=== PATIENT | female | born 1985 | race Caucasian/White ===

== ENCOUNTER 2017-12-05 11:56 | Emergency (ER) | payer OTHER ==
[~2017-12-05] VITALS: Ht 165.1 cm; Wt 72.5 kg
[2017-12-05 11:59] VITALS: TEMP 36.7; Ht 165.1 cm; Wt 72.5 kg
[2017-12-05] MEDS ORDERED: SODIUM CHLORIDE 0.9% 1000ML 1,000 ML IV STA (12:21)
[2017-12-05] MEDS ORDERED: ONDANSETRON INJ 2 MG/ML 2 ML VIAL IV STA (12:21)
--- NOTE | 2017-12-05 12:26 | EMERGENCY ROOM VISIT NOTE ---
History Report prepared by Lorenzo: Eduarda Faye Under the Supervision of: Dr. Giuliano Faith D.O. First contact with patient: 12:16 Chief Complaint: ABDOMINAL PAIN Stated Complaint: CHEST PAIN Nursing Triage Summary: Pt reports epigastric pain with sob for a couple hours. "I had diarrhea for 24 hrs and my son is puking today. I definitely had the stomach bug. It's gone and now I have this." History of Present Illness The patient is a 32 year old female who presents to the Emergency Room with complaints of waxing and waning central abdominal discomfort beginning 3 hours ago. The patient believes her symptoms are "acid related". She reports taking heartburn medication with minimal relief. She states she feels short of breath because her pain is so severe. She reports her pain does not move or radiate anywhere. She denies any blood in urine or stool, vomiting, or vaginal bleeding. The patient's last menstrual period was November 13. She reports having diarrhea for the past 24 hours. The patient's son is also sick with vomiting symptoms. The patient has no active medical problems or history of surgeries. Source of History: patient Onset: 3 hours ago Position: chest, abdomen Quality: other (discomfort) Timing: waxes/wanes Associated Symptoms: + chest pain, + SOB, + abdominal pain, + diarrhea, No vomiting, No urinary symptoms Review of Systems See HPI for pertinent positives & negatives. A total of 10 systems reviewed and were otherwise negative. Past Medical & Surgical Medical Problems: (1) No Known Active Medical Problems Family History Patient reports no known family medical history. Social History Marital Status: in relationship Housing Status: lives with family Occupation Status: employed Current/Historical Medications Scheduled Omeprazole (Prilosec), 40 MG PO DAILY Ondasetron Odt (Zofran Odt), 4 MG SL Q6H Scheduled PRN Oxycodone Immediate Rel Tab (Roxicodone Ir), 1-2 TAB PO Q4H PRN for Severe Pain Allergies Coded Allergies: Penicillins (Verified Allergy, Mild, HIVES, 12/05/17) Amoxicillin (Unverified Allergy, Unknown, ., 12/05/17) Physical Exam Vital Signs Date Time Temp Pulse Resp B/P (MAP) Pulse Ox O2 Delivery O2 Flow Rate FiO2 12/05/17 17:13 75 16 120/79 97 12/05/17 15:51 101 18 139/84 98 Room Air 12/05/17 15:01 77 18 137/77 98 Room Air 12/05/17 11:59 36.7 92 16 135/91 98 Room Air Physical Exam GENERAL: Patient is awake, alert, and in no acute distress. Patient is resting comfortably and showing no signs of anxiety EYES: The conjunctivae are clear. The pupils are round and reactive. EARS, NOSE, MOUTH AND THROAT: The nose is without any evidence of any deformity. Mucous membranes are moist tongue is midline NECK: The neck is nontender and supple. RESPIRATORY: Normal respiratory effort is noted there is no evidence of wheezing rhonchi or rales CARDIOVASCULAR: Regular rate and rhythm noted there no murmurs rubs or gallops normal S1 normal S2 GASTROINTESTINAL: The abdomen is soft, nondistended. Epigastric and RUQ tenderness to palpation, no rigidity Bowel sounds are present in all quadrants. BACK: No midline tenderness or or step-off noted range of motion in flexion extension as well as rotation no signs of muscle spasm noted MUSCULOSKELETAL/EXTREMITIES: There is no evidence of gross deformity full range of motion is noted in the hips and shoulders SKIN: There is no obvious evidence of any rash. There are no petechiae, pallor or cyanosis noted. NEUROLOGIC: Patient is awake alert and oriented x3 strength is symmetric patellar reflexes are 2+ bilaterally Medical Decision & Procedures ER Provider Diagnostic Interpretation: Radiology results as stated below per my review and radiologist interpretation: ABDOMEN 2VIEW W/PA CHEST RTN FINDINGS: The erect chest reveals no free intraperitoneal air. There is no focal pulmonary consolidation. Erect and supine views the abdomen reveal no abnormally dilated loops of large or small bowel. There are multiple colonic air-fluid levels. There is scattered nonspecific granular calcifications overlying the abdomen. It is not possible to determine whether these represent enteric contents or peritoneal calcifications. CT scanning could be obtained in follow-up as deemed clinically indicated. IMPRESSION: 1. No evidence of bowel obstruction. No evidence of free air 2. Scattered granular abdominal calcifications. It is not possible to determine whether these represent enteric contents or peritoneal calcifications. CT scanning could be obtained in follow-up as deemed clinically indicated. Electronically signed by: Ho Bridges M.D. ULTRASOUND RIGHT UPPER QUADRANT ABDOMEN FINDINGS: Liver: The liver is normal in size and echotexture. There is no intrahepatic biliary ductal dilatation. The main portal vein is patent. Gallbladder: The gallbladder is normal in appearance. No gallstones are identified. There is no gallbladder wall thickening or pericholecystic fluid. A sonographic Walker's sign is reportedly absent. The common bile duct measures up to 0.4 cm in diameter. Pancreas: Visualized portions of the pancreatic head and body are normal in appearance. The splenic vein is patent. Right kidney: Survey images of the right kidney demonstrate normal size and echotexture. There is no hydronephrosis. Ascites: None. IMPRESSION: No acute sonographic abnormality is identified in the right upper quadrant. No gallstones are seen. Electronically signed by: Danis Franco M.D. ABD/PELVIS IV CONTRAST ONLY FINDINGS: Wire Tester topogram: Unremarkable. Lung bases: Lungs and pleural spaces clear. Normal heart size. No pericardial or pleural effusion. Liver: Normal morphology. No liver lesion. Patent hepatic vasculature. Biliary: No intrahepatic or extrahepatic biliary ductal dilatation. Normal gallbladder. Pancreas: Normal. Spleen: Normal. Adrenal glands: Normal. Kidneys and ureters: Normal. No hydronephrosis. Bladder: Mild circumferential bladder wall thickening likely due to underdistention. Pelvic organs: Retroverted uterus. Ovarian follicles noted more prominently on the right. Normal ovaries. Bowel: Normal appendix. No bowel obstruction. Peritoneal cavity: Trace free fluid in the pelvis. Lymph nodes: No enlarged lymph nodes in the abdomen or pelvis. Vasculature: Aorta and IVC patent and normal in caliber. Prominence of the bilateral gonadal veins and prominent uterine vessels in the pelvis. Abdominal wall: Small fat-containing umbilical hernia. Musculoskeletal: Normal. IMPRESSION: 1. No acute intra-abdominal pathology. Specifically, no abnormality in the epigastrium. 2. Prominence of the bilateral gonadal veins and prominent uterine vessels could suggest pelvic congestion physiology in the appropriate clinical setting. 3. Mild circumferential bladder wall thickening likely due to underdistention. Correlate with urinalysis to exclude cystitis. 4. Free fluid in the pelvis likely physiologic. Electronically signed by: Samuel Elkins M.D. Laboratory Results 12/05/17 12:45 Red Blood Count 4.38, Mean Corpuscular Volume 87.4, Mean Corpuscular Hemoglobin 29.9, Mean Corpuscular Hemoglobin Concent 34.2, Mean Platelet Volume 10.6, Neutrophils (%) (Auto) 68.7, Lymphocytes (%) (Auto) 21.7, Monocytes (%) (Auto) 8.7, Eosinophils (%) (Auto) 0.6, Basophils (%) (Auto) 0.3, Neutrophils # (Auto) 2.21, Lymphocytes # (Auto) 0.70, Monocytes # (Auto) 0.28, Eosinophils # (Auto) 0.02, Basophils # (Auto) 0.01 12/05/17 12:45 Test 12/05/17 12:45 12/05/17 14:50 White Blood Count 3.22 K/uL (4.8-10.8) Red Blood Count 4.38 M/uL (4.2-5.4) Hemoglobin 13.1 g/dL (12.0-16.0) Hematocrit 38.3 % (37-47) Mean Corpuscular Volume 87.4 fL (80-100) Mean Corpuscular Hemoglobin 29.9 pg (25-34) Mean Corpuscular Hemoglobin Concent 34.2 g/dl (32-36) Platelet Count 172 K/uL (130-400) Mean Platelet Volume 10.6 fL (7.4-10.4) Neutrophils (%) (Auto) 68.7 % Lymphocytes (%) (Auto) 21.7 % Monocytes (%) (Auto) 8.7 % Eosinophils (%) (Auto) 0.6 % Basophils (%) (Auto) 0.3 % Neutrophils # (Auto) 2.21 K/uL (1.4-6.5) Lymphocytes # (Auto) 0.70 K/uL (1.2-3.4) Monocytes # (Auto) 0.28 K/uL (0.11-0.59) Eosinophils # (Auto) 0.02 K/uL (0-0.5) Basophils # (Auto) 0.01 K/uL (0-0.2) RDW Standard Deviation 39.9 fL (36.4-46.3) RDW Coefficient of Variation 12.4 % (11.5-14.5) Immature Granulocyte % (Auto) 0.0 % Immature Granulocyte # (Auto) 0.00 K/uL (0.00-0.02) Anion Gap 9.0 mmol/L (3-11) Est Creatinine Clear Calc Drug Dose 121.7 ml/min Estimated GFR () 134.3 Estimated GFR (Non- 115.8 BUN/Creatinine Ratio 16.3 (10-20) Calcium Level 8.5 mg/dl (8.5-10.1) Total Bilirubin 0.5 mg/dl (0.2-1) Direct Bilirubin 0.1 mg/dl (0-0.2) Aspartate Amino Transf (AST/SGOT) 16 U/L (15-37) Alanine Aminotransferase (ALT/SGPT) 21 U/L (12-78) Alkaline Phosphatase 43 U/L (45-117) Troponin I < 0.015 ng/ml (0-0.045) Total Protein 7.1 gm/dl (6.4-8.2) Albumin 3.7 gm/dl (3.4-5.0) Lipase 109 U/L (73-393) Human Chorionic Gonadotropin, Qual NEG (NEG) Urine Color YELLOW Urine Appearance CLEAR (CLEAR) Urine pH 6.0 (4.5-7.5) Urine Specific [place] 1.010 (1.000-1.030) Urine Protein NEG (NEG) Urine Glucose (UA) NEG (NEG) Urine Ketones 2+ (NEG) Urine Occult Blood NEG (NEG) Urine Nitrite NEG (NEG) Urine Bilirubin NEG (NEG) Urine Urobilinogen NEG (NEG) Urine Leukocyte Esterase NEG (NEG) Laboratory results per my review. Medications Administered Medications (Trade) Dose Ordered Sig/Brooke Route Start Time Stop Time Status Last Admin Dose Admin Sodium Chloride 1,000 ml @ 999 mls/hr Q1H1M STAT IV 12/05/17 12:21 12/05/17 13:21 DC 12/05/17 12:55 999 MLS/HR Ondansetron HCl (Zofran Inj) 4 mg NOW STAT IV 12/05/17 12:21 12/05/17 12:22 DC 12/05/17 13:11 4 MG Pantoprazole Sodium (Protonix Tab) 40 mg NOW STAT PO 12/05/17 15:57 12/05/17 15:59 DC 12/05/17 16:04 40 MG Al Hydroxide/Mg Hydroxide (Maalox Susp) 30 ml STK-MED ONCE .ROUTE 12/05/17 16:02 12/05/17 16:03 DC 12/05/17 16:05 30 ML Lidocaine HCl (Viscous Lidocaine 2% Soln) 20 ml STK-MED ONCE .ROUTE 12/05/17 16:02 12/05/17 16:03 DC 12/05/17 16:05 20 ML ECG Indication: abdominal pain Rate (beats per minute): 72 Rhythm: normal sinus Findings: no acute ischemic change, no ectopy, other (no acute ST segments ) Comparison ECG Date: no prior available Change: EKG interpreted by me. ED Course 1218: The patient was evaluated in room B5. A complete history and physical examination were performed. 1221: Ordered Zofran Inj 4 mg IV, NSS 1,000 ml @ 999 mls/hr IV. 1300: Ordered Morphine Sulfate 4 mg IV. 1542: I updated the patient on her test results. 1557: Ordered Protonix Tab 40 mg PO, GI Cocktail 24 ml PO. 1602: Ordered Lidocaine HCL 20 ml .ROUTE, Maalox Susp 30 ml .ROUTE. 1654: Upon reevaluation, the patient is resting comfortably. I discussed the results and treatment plan with her. She verbalized agreement of the treatment plan. The patient was discharged home. Medical Decision Differential diagnosis: Etiologies such as appendicitis, diverticulitis, PUD, biliary pathology, UTI, pancreatitis, obstruction, mesenteric ischemia, aortic pathology, infections, inflammatory bowel disease, renal colic, as well as others were entertained. HEART score 1. Nursing notes reviewed. The patient is a 32-year-old female who presented to the emergency department for an evaluation of epigastric discomfort. The patient has a child at home and currently has a nonspecific GI illness. The patient's been expressing nausea and reproducible epigastric discomfort. I discussed patient's laboratory and radiographic studies with her. No acute abnormality was noted on CT the abdomen and pelvis. The patient was treated with GI cocktail IV pain medicine and IV antiemetics. On subsequent reevaluation she was minimally improved. At this time I feel it is likely a GI source for her discomfort. She was started on medications for this and encouraged to call her primary care physician to schedule a follow-up appointment. Otherwise also encouraged her to avoid any strenuous activity and return to the emergency department immediately if symptoms change worsen or the need arises. Medication Reconcilliation Current Medication List: was personally reviewed by me Blood Pressure Screening Patient's blood pressure: Elevated blood pressure Blood pressure disposition: Elevated BP felt to be situational Impression Primary Impression: Epigastric pain Additional Impression: Gastritis Scribe Attestation The scribe's documentation has been prepared under my direction and personally reviewed by me in its entirety. I confirm that the note above accurately reflects all work, treatment, procedures, and medical decision making performed by me. Departure Information Dispostion Home / Self-Care Prescriptions Omeprazole (PRILOSEC) 40 Mg Cap 40 MG PO DAILY, #30 CAP Prov: Giuliano Faith, DO 12/05/17 Oxycodone Immediate Rel Tab (ROXICODONE IR) 5 Mg Tab 1-2 TAB PO Q4H Y for Severe Pain, #20 TAB Prov: Giuliano Faith, DO 12/05/17 Ondasetron Odt (ZOFRAN ODT) 4 Mg Tab 4 MG SL Q6H for Nausea, #15 TAB Prov: Giuliano Faith, DO 12/05/17 Referrals No Doctor, Assigned (PCP) Forms Call Back Authorization, HOME CARE DOCUMENTATION FORM, IMPORTANT VISIT INFORMATION Patient Instructions ED Epigastric Pain [facility]iff[facility] Additional Instructions Continue all medications as prescribed. Drink plenty clear liquids. Continue using Maalox or Mylanta as directed for symptomatically relief. Avoid NSAIDs such as ibuprofen or Aleve. Call your family to schedule a follow-up appointment. Return to the emergency department immediately if symptoms change worsen or the need arises. Problem Qualifiers Additional Impression: Gastritis Gastritis type: unspecified gastritis Chronicity: acute Gastritis bleeding : presence of bleeding unspecified Qualified Codes: K29.00 - Acute gastritis without bleeding
[2017-12-05] MEDS ORDERED: MoRPHine SULFATE 4 MG/ML 1 ML CARP\\VIAL IV PRN (13:00)
[2017-12-05 13:22] LABS: BASO % 0.3 %; BASO ABS # 0.01 K/uL (0-0.2); EOS % 0.6 %; EOS ABS # 0.02 K/uL (0-0.5); HEMATOCRIT 38.3 % (37-47); HEMOGLOBIN 13.1 g/dL (12.0-16.0); LYMPH % 21.7 %; MEAN CELL VOLUME 87.4 fL (80-100); MEAN CORPUSCULAR HEMOGLOBIN 29.9 pg (25-34); MEAN CORPUSCULAR HGB CONC 34.2 g/dl (32-36); MEAN PLATELET VOLUME 10.6 fL (7.4-10.4); MONO % 8.7 %; MONO ABS # 0.28 K/uL (0.11-0.59); NEUT % 68.7 %; NEUT ABS # 2.21 K/uL (1.4-6.5); PLATELET COUNT 172 K/uL (130-400); RED CELL DISTRIBUTION WIDTH CV 12.4 % (11.5-14.5); RED CELL DISTRIBUTION WIDTH SD 39.9 fL (36.4-46.3); WHITE BLOOD COUNT 3.22 K/uL (4.8-10.8)
--- NOTE | 2017-12-05 13:37 | DIAGNOSTIC IMAGING REPORT ---
ABDOMEN 2VIEW W/PA CHEST RTN CLINICAL HISTORY: Chest and abdominal pain COMPARISON STUDY: Chest x-ray dated 05/18/2012 FINDINGS: The erect chest reveals no free intraperitoneal air. There is no focal pulmonary consolidation. Erect and supine views the abdomen reveal no abnormally dilated loops of large or small bowel. There are multiple colonic air-fluid levels. There is scattered nonspecific granular calcifications overlying the abdomen. It is not possible to determine whether these represent enteric contents or peritoneal calcifications. CT scanning could be obtained in follow-up as deemed clinically indicated. IMPRESSION: 1. No evidence of bowel obstruction. No evidence of free air 2. Scattered granular abdominal calcifications. It is not possible to determine whether these represent enteric contents or peritoneal calcifications. CT scanning could be obtained in follow-up as deemed clinically indicated. Electronically signed by: Ho Bridges M.D. 12/05/2017 1:35 PM Dictated Date/Time: 12/05/2017 1:33 PM
[2017-12-05 13:45] LABS: ALBUMIN 3.7 gm/dl (3.4-5.0); ALT/SGPT 21 U/L (12-78); AST/SGOT 16 U/L (15-37); BLOOD UREA NITROGEN 11 mg/dl (7-18); CALCIUM 8.5 mg/dl (8.5-10.1); CARBON DIOXIDE 23 mmol/L (21-32); CREATININE 0.65 mg/dl (0.60-1.20); GLUCOSE 92 mg/dl (70-99); LIPASE 109 U/L (73-393); POTASSIUM 3.1 mmol/L (3.5-5.1); SODIUM 136 mmol/L (136-145)
[2017-12-05 13:50] LABS: ALKALINE PHOSPHATASE 43 U/L (45-117); TOTAL PROTEIN 7.1 gm/dl (6.4-8.2)
--- NOTE | 2017-12-05 14:30 | DIAGNOSTIC IMAGING REPORT ---
ULTRASOUND RIGHT UPPER QUADRANT ABDOMEN CLINICAL HISTORY: Epigastric abdominal pain. COMPARISON STUDY: Abdominal radiograph dated 12/05/2017. TECHNIQUE: Real-time, grayscale, and color flow sonography of the right upper quadrant of the abdomen was performed. Images are reviewed in the transverse and longitudinal planes. FINDINGS: Liver: The liver is normal in size and echotexture. There is no intrahepatic biliary ductal dilatation. The main portal vein is patent. Gallbladder: The gallbladder is normal in appearance. No gallstones are identified. There is no gallbladder wall thickening or pericholecystic fluid. A sonographic Walker's sign is reportedly absent. The common bile duct measures up to 0.4 cm in diameter. Pancreas: Visualized portions of the pancreatic head and body are normal in appearance. The splenic vein is patent. Right kidney: Survey images of the right kidney demonstrate normal size and echotexture. There is no hydronephrosis. Ascites: None. IMPRESSION: No acute sonographic abnormality is identified in the right upper quadrant. No gallstones are seen. Electronically signed by: Danis Franco M.D. 12/05/2017 2:29 PM Dictated Date/Time: 12/05/2017 2:27 PM
[2017-12-05] MEDS ORDERED: OPTIRAY 320 IV PRN (14:45)
--- NOTE | 2017-12-05 15:30 | DIAGNOSTIC IMAGING REPORT ---
ABD/PELVIS IV CONTRAST ONLY CLINICAL HISTORY: 32 years-old Female presenting with epigastric pain. TECHNIQUE: Multidetector CT of the abdomen and pelvis was performed after the administration of intravenous contrast. IV contrast: 115 mL of Optiray 320. A dose lowering technique was used consistent with the principles of ALARA (as low as reasonably achievable). COMPARISON: Ultrasound from earlier the same day. CT DOSE (mGy.cm): The estimated cumulative dose is 329.47 mGy.cm. FINDINGS: Bowling Alley Attendant topogram: Unremarkable. Lung bases: Lungs and pleural spaces clear. Normal heart size. No pericardial or pleural effusion. Liver: Normal morphology. No liver lesion. Patent hepatic vasculature. Biliary: No intrahepatic or extrahepatic biliary ductal dilatation. Normal gallbladder. Pancreas: Normal. Spleen: Normal. Adrenal glands: Normal. Kidneys and ureters: Normal. No hydronephrosis. Bladder: Mild circumferential bladder wall thickening likely due to underdistention. Pelvic organs: Retroverted uterus. Ovarian follicles noted more prominently on the right. Normal ovaries. Bowel: Normal appendix. No bowel obstruction. Peritoneal cavity: Trace free fluid in the pelvis. Lymph nodes: No enlarged lymph nodes in the abdomen or pelvis. Vasculature: Aorta and IVC patent and normal in caliber. Prominence of the bilateral gonadal veins and prominent uterine vessels in the pelvis. Abdominal wall: Small fat-containing umbilical hernia. Musculoskeletal: Normal. IMPRESSION: 1. No acute intra-abdominal pathology. Specifically, no abnormality in the epigastrium. 2. Prominence of the bilateral gonadal veins and prominent uterine vessels could suggest pelvic congestion physiology in the appropriate clinical setting. 3. Mild circumferential bladder wall thickening likely due to underdistention. Correlate with urinalysis to exclude cystitis. 4. Free fluid in the pelvis likely physiologic. Electronically signed by: Samuel Elkins M.D. 12/05/2017 3:28 PM Dictated Date/Time: 12/05/2017 3:24 PM
[2017-12-05] MEDS ORDERED: PANTOprazole SOD 40 MG TAB PO STA (15:57)
[2017-12-05] MEDS ORDERED: GI COCKTAIL PO STA (15:57)
[2017-12-05] MEDS ORDERED: ALUMINUM/MAGNESIUM SUSP 30 ML UDC ONE (16:02)
[2017-12-05] MEDS ORDERED: LIDOCAINE HCL 2% VISC SOLN 20 ML UDC ONE (16:02)
[2017-12-05] MEDS ORDERED: PANT40TA PO (16:07)
[2017-12-05] MEDS ORDERED: ONDA4TAB10 SL (16:07)
[2017-12-05] MEDS ORDERED: OXYC1TAB3 PO (16:07)
[2017-12-05] MEDS ORDERED: OMEP40CA41 PO (16:16)
[2017-12-05 17:13] VITALS: BP 120/79; PULSE 75; O2SAT 97
== END 2017-12-05 17:10 | disposition home or self-care (01) ==
LOC: C.EDB 11:57
DX: R10.13 Epigastric pain (principal); R07.9 Chest pain, unspecified; K29.70 Gastritis, unspecified, without bleeding